=== PATIENT | female | born 1960 | race Caucasian/White ===

== ENCOUNTER 2019-04-03 08:04 | Day surgery (SDC) | payer BC ==
[2019-04-03] MEDS ORDERED: Lactated Ringers 1,000 ML IV SCH (09:00)
[2019-04-03] MEDS ORDERED: DIPRIVAN 200 MG/20 ML IV ONE ×2 (10:54→11:16)
[2019-04-03] MEDS ORDERED: Lactated Ringers 1,000 ML IV ONE (11:00)
[2019-04-03 12:06] VITALS: BP 98/51; PULSE 65; O2SAT 98
--- NOTE | 2019-04-03 14:03 | OP ---
SURGERY DATE/TIME: 04/03/2019 1101 PREOPERATIVE DIAGNOSIS: Positive Cologuard. POSTOPERATIVE DIAGNOSIS: Colon polyps. PROCEDURES: Colonoscopy to cecum with hot forceps polypectomy x3. SURGEON: Praveen Villasenor M.D. ANESTHESIA: MAC. ESTIMATED BLOOD LOSS: None. COMPLICATIONS: None. SPECIMENS: Two rectal polyps, one hepatic flexure polyp. FINDINGS: Three tiny polyps. Plan for next colonoscopy in five years pending pathology. Adequate prep. PATIENT PRESENTATION: The patient presents with a positive Cologuard. After discussing risks, benefits of colonoscopy, the patient wished to proceed. DESCRIPTION OF PROCEDURE: The patient was brought to the endoscopy suite. Placed on MAC anesthesia. Rectal exam was performed without abnormality. The scope was gently slowly advanced to the cecum without difficulty. Bowel prep was adequate. Ileocecal valve and appendiceal orifice were clearly identified. The scope was slowly withdrawn. There was a tiny 3 mm sessile polyp in the hepatic flexure that was removed in its entirety with one application of hot forceps. The scope was further withdrawn. There were a few tiny rectal sessile polyps that looked like hyperplastic polyps. Two of these were removed with hot forceps in their entirety. Retroflexion performed in the rectum and rectum desufflated. The scope removed. The patient was recovered and taken to the PACU in stable condition. Plan for next colonoscopy in five years pending pathology.
== END 2019-04-03 12:39 | disposition home or self-care (01) ==
LOC: SDC 08:04
PROVIDERS: ATTEND Surgery
DX: Z12.11 Encounter for screening for malignant neoplasm of colon (principal); D12.3 Benign neoplasm of transverse colon; D12.8 Benign neoplasm of rectum; Z83.71 Family history of colonic polyps; I10 Essential (primary) hypertension; Z79.899 Other long term (current) drug therapy
CPT/HCPCS: 88305; J2704